=== PATIENT | male | born 1945 | race Native Hawaiian/Other Pacific Islander ===

== ENCOUNTER 2018-12-25 13:03 | Outpatient (CLI) | payer OTHER, MEDICARE ==
[~2018-12-25 13:03] MED LIST: ADULT ASA81 MG PO; AMLO10TA PO; ATORVASTATIN PO; BENADRYL25 M1 PO; BRILINTA90 MG PO; CARTIA XT240 MG/24 PO; CARV3.12 PO; CENTRUM SILVER PO; CLINDAMYCIN300 MG PO; CLONIDINE0.1 MG PO; ENDOCET1 TAB PO; EQ STOOL SOFTE100 MG PO; FURO20TA67 PO; FURO40TA93 PO; HYDR5TAB9 PO; KLOR-CON M1010 MEQ PO; LAMISIL250 MG PO; LANSOPRAZOLE30 MG PO; LIPITOR10 MG PO; LISI20TA11 PO; LYRICA100 MG PO; LYRICA75 MG OR; MECLIZINE25 MG OR; METF500T PO; METOPROL TAR25 MG PO; NORFLEX PO; ONDA4TAB3 PO; PANT40TA PO; POT GLUCONAT595 MG PO; SUPER B COM1 PO; TAMSULOSIN0.4 MG PO; TESTOST CYP200 MG/ML IM; TRAM50TA PO; WARFARIN4 MG PO
== END 2018-12-25 20:48 | disposition home or self-care (01) ==
LOC: CT 13:03
DX: Z86.73 Personal history of transient ischemic attack (TIA), and cerebral infarction without residual deficits (principal); R47.01 Aphasia

== ENCOUNTER 2019-01-09 09:02 | Emergency (ER) | payer OTHER, MEDICARE ==
[~2019-01-09] VITALS: Ht 170.2 cm; Wt 98.9 kg
[2019-01-09 09:08] VITALS: BP 112/92; TEMP 97.3
[2019-01-09 10:43] LABS: PLATELET COUNT 159 K/uL (142-355)
[2019-01-09 10:56] LABS: POTASSIUM 3.6 mmol/L (3.6-5.2)
== END 2019-01-09 12:48 | disposition home or self-care (01) ==
LOC: ED 09:02
PROVIDERS: Emergency Medicine Emergency Medical Services
DX: R53.1 Weakness (principal); R53.81 Other malaise; I77.810 Thoracic aortic ectasia; Z13.6 Encounter for screening for cardiovascular disorders
CPT/HCPCS: 80053; 84484; 85027; 99283

== ENCOUNTER 2019-01-27 16:00 | Outpatient (CLI) | payer OTHER, MEDICARE ==
[2019-01-27] MEDS ORDERED: CARV12.5 PO ×3 (18:37→18:45)
[2019-01-27] MEDS ORDERED: CLONIDINE HYDR0.2 MG PO (18:46)
[2019-01-27] MEDS ORDERED: LISI5TAB10 PO (18:46)
[2019-01-27] MEDS ORDERED: CARAFATE1 GM PO (18:47)
[2019-01-27] MEDS ORDERED: LYRICA150 MG PO (18:48)
[2019-01-27] MEDS ORDERED: K-TAB20 MEQ PO (18:48)
[2019-01-27] MEDS ORDERED: DULOXETINE HCL60 MG PO (18:50)
[2019-01-27] MEDS ORDERED: IRON325 MG PO (18:51)
[2019-01-27] MEDS ORDERED: JANTOVEN2.5 MG PO (18:54)
[2019-01-27] MEDS ORDERED: JANTOVEN5 MG PO (18:54)
[2019-01-27] MEDS ORDERED: DOCU100C10 PO (18:55)
== END 2019-01-27 19:49 | disposition home or self-care (01) ==
LOC: RAD 16:00
DX: R09.89 Other specified symptoms and signs involving the circulatory and respiratory systems (principal); M79.672 Pain in left foot

== ENCOUNTER 2019-01-27 18:12 | Emergency (ER) | payer OTHER, MEDICARE ==
[~2019-01-27] VITALS: Ht 170.2 cm; Wt 81.6 kg
[2019-01-27] MEDS ORDERED: CARV12.5 PO ×3 (18:37→18:45)
[2019-01-27] MEDS ORDERED: LISI5TAB10 PO (18:46)
[2019-01-27] MEDS ORDERED: CLONIDINE HYDR0.2 MG PO (18:46)
[2019-01-27] MEDS ORDERED: CARAFATE1 GM PO (18:47)
[2019-01-27] MEDS ORDERED: LYRICA150 MG PO (18:48)
[2019-01-27] MEDS ORDERED: K-TAB20 MEQ PO (18:48)
[2019-01-27] MEDS ORDERED: DULOXETINE HCL60 MG PO (18:50)
[2019-01-27] MEDS ORDERED: IRON325 MG PO (18:51)
[2019-01-27] MEDS ORDERED: JANTOVEN5 MG PO (18:54)
[2019-01-27] MEDS ORDERED: JANTOVEN2.5 MG PO (18:54)
[2019-01-27] MEDS ORDERED: DOCU100C10 PO (18:55)
[2019-01-27 19:48] VITALS: BP 158/74; TEMP 98.3
== END 2019-01-27 19:48 | disposition home or self-care (01) ==
LOC: ED 18:12
DX: I73.89 Other specified peripheral vascular diseases (principal)
CPT/HCPCS: 99282

== ENCOUNTER 2019-04-21 11:53 | Outpatient (CLI) | payer OTHER, MEDICARE ==
[~2019-04-21 11:53] MED LIST changes: +CARAFATE1 GM PO; +CARV12.5 PO; +CLONIDINE HYDR0.2 MG PO; +DOCU100C10 PO; +DULOXETINE HCL60 MG PO; +IRON325 MG PO; +JANTOVEN2.5 MG PO; +JANTOVEN5 MG PO; +K-TAB20 MEQ PO; +LISI5TAB10 PO; +LYRICA150 MG PO
== END 2019-04-21 23:18 | disposition home or self-care (01) ==
LOC: RAD 11:53
DX: R07.81 Pleurodynia (principal); Z91.81 History of falling

== ENCOUNTER 2019-05-22 08:07 | Outpatient (CLI) | payer OTHER, MEDICARE ==
[2019-05-22 08:40] LABS: POTASSIUM 4.6 mmol/L (3.6-5.2)
[2019-05-22 09:51] LABS: PLATELET COUNT 169 K/uL (142-355)
== END 2019-05-22 21:26 | disposition home or self-care (01) ==
LOC: US 08:07
PROVIDERS: Internal Medicine
DX: N18.3 Chronic kidney disease, stage 3 (moderate) (principal); E11.29 Type 2 diabetes mellitus with other diabetic kidney complication
CPT/HCPCS: 36415; 80069; 81000; 82570; 83883; 84155; 85027; 86038

== ENCOUNTER 2019-06-23 15:29 | Outpatient (CLI) | payer OTHER, MEDICARE | END 2019-06-23 22:19 | disposition home or self-care (01) | LOC: LABW 15:29 | DX: M54.5 Low back pain (principal); M54.6 Pain in thoracic spine; I10 Essential (primary) hypertension; R19.7 Diarrhea, unspecified; E11.9 Type 2 diabetes mellitus without complications; R41.3 Other amnesia; D64.89 Other specified anemias; N17.8 Other acute kidney failure; Z79.01 Long term (current) use of anticoagulants; I48.91 Unspecified atrial fibrillation | CPT/HCPCS: 82272; 82705; 83630; 87015; 87045; 87324; 87328; 87329; 87449; 87899 ==

== ENCOUNTER 2019-07-11 13:37 | Outpatient (CLI) | payer OTHER, MEDICARE ==
[2019-07-12] MEDS ORDERED: NAMENDA5 MG PO (06:15)
[2019-07-12] MEDS ORDERED: TRAMADOL HYDROC50 MG PO (06:19)
[2019-07-12] MEDS ORDERED: LEVOCETIRIZINE D5 MG PO (06:20)
== END 2019-07-11 13:39 | disposition short-term general hospital (02) ==
LOC: AMB 13:37
DX: R41.82 Altered mental status, unspecified (principal); R50.9 Fever, unspecified; R94.31 Abnormal electrocardiogram [ECG] [EKG]; I45.19 Other right bundle-branch block; I48.91 Unspecified atrial fibrillation; R00.0 Tachycardia, unspecified
CPT/HCPCS: A0425; A0427

== ENCOUNTER 2019-07-11 13:42 | Inpatient (IN) | payer OTHER, MEDICARE ==
[~2019-07-11] VITALS: Ht 167.6 cm; Wt 79.8 kg
[2019-07-11] VITALS (8 sets, daily range): BP systolic 109–145; BP diastolic 50–67; TEMP 101.5–101.7; Ht 167.6 cm; Wt 79.8 kg
[2019-07-11 14:20] LABS: PLATELET COUNT 130 K/uL (142-355)
[2019-07-11 14:37] LABS: POTASSIUM 4.3 mmol/L (3.6-5.2)
[2019-07-11 14:44] LABS: PARTIAL THROMBOPLASTIN TIME 28.7 SECONDS (24.5-33.6)
[2019-07-12] VITALS (8 sets, daily range): BP systolic 96–150; BP diastolic 41–67; TEMP 98–98.1
[2019-07-12 05:15] LABS: PLATELET COUNT 94 K/uL (142-355)
[2019-07-12 05:20] LABS: POTASSIUM 3.3 mmol/L (3.6-5.2)
[2019-07-12] MEDS ORDERED: NAMENDA5 MG PO (06:15)
[2019-07-12] MEDS ORDERED: TRAMADOL HYDROC50 MG PO (06:19)
[2019-07-12] MEDS ORDERED: LEVOCETIRIZINE D5 MG PO (06:20)
== END 2019-07-12 07:42 | disposition short-term general hospital (02) | DRG 310 ==
LOC: ED 13:42 → ICU 17:00
PROVIDERS: Internal Medicine; ADMIT Family Medicine
DX: I48.91 Unspecified atrial fibrillation (principal); R00.0 Tachycardia, unspecified; R79.89 Other specified abnormal findings of blood chemistry; E86.0 Dehydration; R53.1 Weakness; I45.19 Other right bundle-branch block; I25.10 Atherosclerotic heart disease of native coronary artery without angina pectoris; E11.42 Type 2 diabetes mellitus with diabetic polyneuropathy; R41.82 Altered mental status, unspecified; Z86.73 Personal history of transient ischemic attack (TIA), and cerebral infarction without residual deficits; D50.8 Other iron deficiency anemias; K11.0 Atrophy of salivary gland; I11.0 Hypertensive heart disease with heart failure; I50.9 Heart failure, unspecified
CPT/HCPCS: 51702; 80048; 80053; 80307; 81000; 82550; 82570; 83605; 83880; 84300; 84443; 84484; 85027; 85610; 85730; 87040; 87502; 93005; 94640; 94664; 94760; 96360; 96365; 96366; 96372; 99285; J1644; J1650; J1956; J3490

== ENCOUNTER 2019-07-12 07:49 | Outpatient (CLI) | payer OTHER, MEDICARE ==
[~2019-07-12 07:49] MED LIST changes: +LEVOCETIRIZINE D5 MG PO; +NAMENDA5 MG PO; +TRAMADOL HYDROC50 MG PO
== END 2019-07-12 08:58 | disposition short-term general hospital (02) ==
LOC: AMB 07:49
DX: R79.89 Other specified abnormal findings of blood chemistry (principal); F03.90 Unspecified dementia, unspecified severity, without behavioral disturbance, psychotic disturbance, mood disturbance, and anxiety
CPT/HCPCS: A0425; A0427

== ENCOUNTER 2019-07-27 15:13 | Outpatient (CLI) | payer OTHER, MEDICARE ==
[2019-07-27 16:00] LABS: PLATELET COUNT 187 K/uL (142-355)
[2019-07-27 16:20] LABS: POTASSIUM 4.4 mmol/L (3.6-5.2)
== END 2019-07-27 20:18 | disposition home or self-care (01) ==
LOC: LABW 15:13
PROVIDERS: Nurse Practitioner Family
DX: F32.9 Major depressive disorder, single episode, unspecified (principal); I10 Essential (primary) hypertension; E11.9 Type 2 diabetes mellitus without complications; E78.49 Other hyperlipidemia; R41.82 Altered mental status, unspecified; R06.02 Shortness of breath
CPT/HCPCS: 36415; 80053; 83036; 84550; 85027; 85610

== ENCOUNTER 2019-10-14 10:16 | Outpatient (CLI) | payer OTHER, MEDICARE | END 2019-10-14 22:30 | disposition home or self-care (01) | LOC: RAD 10:16 | DX: R05 Cough (principal); J20.9 Acute bronchitis, unspecified ==